=== PATIENT | female | born 1970 | race Caucasian/White ===

== ENCOUNTER → 2017-04-22 | Outpatient (CLI) | payer OTHER ==
[2017-04-22 10:26] LABS: Creatine Kinase MB 0.6 ng/mL (0.0-2.4); Troponin I <0.012 ng/mL (0.000-0.034)
== END | disposition home or self-care (01) ==
LOC: LABWHC1 09:08
PROVIDERS: ATTEND Physician Assistant
DX: R07.89 Other chest pain (principal)
CPT/HCPCS: 36415; 82550; 82553; 84484

== ENCOUNTER → 2021-09-21 | Outpatient (CLI) | payer OTHER ==
[2021-09-21 14:34] LABS: ALT 24 U/L (8-44); AST 21 U/L (13-35); Chol/HDL Ratio 3.04 Ratio; LDL Cholesterol,Calculated 87.5 mg/dL (0.0-131.0)
== END | disposition home or self-care (01) ==
LOC: LABWHC1 08:18
PROVIDERS: ATTEND Internal Medicine Cardiovascular Disease
DX: E78.2 Mixed hyperlipidemia (principal)
CPT/HCPCS: 36415; 80061; 84450; 84460

== ENCOUNTER 2022-07-12 10:33 | Day surgery (SDC) | payer OTHER ==
[2022-07-12 11:13] VITALS: TEMP 98.2
[2022-07-12] MEDS ORDERED: LACTATED RINGERS 1,000 ML IV ONE (11:23)
[2022-07-12 11:27] LABS: Glucose,Whole Blood 76 mg/dL (70-110)
[2022-07-12] MEDS ORDERED: LIDOCAINE 2% INJ 20 MG/ML (2 ML VIAL) ONE (12:46)
[2022-07-12] MEDS ORDERED: PROPOFOL 10 MG/ML 20 ML VIAL IV ONE (12:46)
--- NOTE | 2022-07-12 13:11 | P.PCN ---
Date of Procedure: 07/12/22 Procedure(s) Performed: BRIEF HISTORY: Patient is a 52-year-old pleasant white female scheduled for an elective colonoscopy as a part of screening for colon cancer. Her father was diagnosed with colon cancer at age 60. PROCEDURE PERFORMED: Colonoscopy. PREOPERATIVE DIAGNOSIS: Screening for colon cancer and family history of colon cancer. IV sedation per Anesthesia. PROCEDURE: After informed consent was obtained, the patient, was brought into the endoscopy unit. IV sedation was administered by Anesthesia under continuous monitoring. Digital rectal examination was normal. Initially the Olympus CF-160 flexible video colonoscope was then inserted in the rectum, gradually advanced into the cecum without any difficulty. Careful examination was performed as the scope was gradually being withdrawn. Ileocecal valve and the appendiceal orifice were visualized and appeared normal. Prep was excellent. Mucosa of the cecum, ascending colon, transverse colon, descending colon, sigmoid colon, and rectum appeared normal. Moderate sigmoid diverticulosis. Retroflexion was performed in the rectum and no lesions were seen. The patient tolerated the procedure well. IMPRESSION: Normal-appearing colon from rectum to cecum with no evidence of colitis or colorectal neoplasia . Moderate sigmoid diverticulosis. RECOMMENDATIONS: Findings of this examination were discussed with the patient as well as her family. She was advised to have a repeat screening colonoscopy every 5 years because of family history of colon cancer.
[2022-07-12 13:24] VITALS: RESP 20
[2022-07-12 13:43] VITALS: BP 142/89; PULSE 71
== END 2022-07-12 13:52 ==
LOC: ORWHC2ENDO 10:33
PROVIDERS: ATTEND Internal Medicine Gastroenterology
DX: Z12.11 Encounter for screening for malignant neoplasm of colon (principal); K57.30 Diverticulosis of large intestine without perforation or abscess without bleeding; I10 Essential (primary) hypertension; E78.5 Hyperlipidemia, unspecified; Z79.899 Other long term (current) drug therapy; Z80.0 Family history of malignant neoplasm of digestive organs
CPT/HCPCS: 81025; 45378; J2704; J2001

== ENCOUNTER → 2023-06-09 | Outpatient (CLI) | payer OTHER ==
--- NOTE | 2023-06-10 20:13 | MM ---
Reason for Exam: Screening (asymptomatic). Last screening mammogram was performed 12 month(s) ago. Patient History: Menarche at age 13. First Full-Term at age 26. Postmenopausal. Estrogen and Progesterone for 1 month. Risk Values: Mary 5 year model risk: 1.2%. NCI Lifetime model risk: 8.5%. Prior Study Comparison: 06/20/2014 Bilateral Screening Mammogram, [facility]. 06/06/2022 Bilateral MG 3D screening mammo w/cad, [facility]. Tissue Density: The breast tissue is heterogeneously dense. This may lower the sensitivity of mammography. Findings: Analyzed By CAD. There is no suspicious group of microcalcifications or new suspicious mass in either breast. Overall Assessment: Negative, BI-RAD 1 Management: Screening Mammogram of both breasts in 1 year. . Patient should continue monthly self-breast exams. A clinical breast exam by your physician is recommended on an annual basis. This exam should not preclude additional follow-up of suspicious palpable abnormalities. Note on Mary scores and lifetime risk: 1. A Mary score greater than 3% is considered moderate risk. If this is the case, consider specialist referral to assess eligibility for a risk reducing agent. 2. If overall lifetime risk for the development of breast cancer is 20% or higher, the patient may qualify for future screening with alternating mammogram and breast MRI. Electronically signed and approved by: Romero Lopes M.D. Radiologist
== END | disposition home or self-care (01) ==
LOC: RADMAMWWP 16:22
PROVIDERS: ATTEND Family Medicine
DX: Z12.31 Encounter for screening mammogram for malignant neoplasm of breast (principal); Z78.0 Asymptomatic menopausal state
CPT/HCPCS: 77063; 77067

== ENCOUNTER → 2024-09-01 | Outpatient (CLI) | payer BC ==
--- NOTE | 2024-09-01 08:01 | US ---
EXAMINATION TYPE: US liver DATE OF EXAM: 09/01/2024 COMPARISON: NONE CLINICAL INDICATION: Female, 54 years old with history of R79.89 ABN FINDINGS OF BLOOD CHEM; TECHNIQUE: Grayscale and color Doppler imaging of the right upper quadrant. FINDINGS: EXAM MEASUREMENTS: Liver Length: 13.8 cm Gallbladder Wall: 0.2 cm CBD: 0.7 cm, color Doppler imaging was utilized to isolate the common bile duct for measurement. Right Kidney: 11.3x4.6x5.0 cm TARP REPAIRER NOTES: slightly limited exam due to overlying bowel Pancreas: Head and tail obscured by overlying bowel gas Liver: Increased attenuation, decreased visualization of vessels suggestive of fatty infiltrate, sli ghtly difficult to penetrate, slightly obscured by overlying bowel Gallbladder: No stones seen Evidence for sonographic Inman's sign: No CBD: Borderline dilated Right Kidney: No hydronephrosis. Vague 1.8 cm hypoechoic area at the upper and mid pole. IMPRESSION: 1. Heterogeneous liver parenchyma suggesting fatty infiltration or other nonspecific hepatocellular d isease. Further evaluation recommended. 2. No gallstones. 3. Borderline dilated bile duct up to 7 mm may be chronic dilatation. Correlate with alkaline phospha tase and bilirubin levels to exclude early biliary obstruction. 4. Vague 1.8 cm hypoechoic area at the upper mid pole right kidney. Possible cyst with debris. Subtle solid mass not excluded at this time. Recommend 2 month follow-up ultrasound to reassess this area a nd exclude a suspicious lesion. [facility], , 09/01/2024 7:59 AM
== END | disposition home or self-care (01) ==
LOC: RADUSWWP 06:55
PROVIDERS: ATTEND Internal Medicine Gastroenterology
DX: K76.89 Other specified diseases of liver (principal); R79.89 Other specified abnormal findings of blood chemistry
CPT/HCPCS: 76705

== ENCOUNTER → 2024-10-13 | Outpatient (CLI) | payer BC ==
--- NOTE | 2024-10-13 16:33 | MM ---
Reason for Exam: Screening (asymptomatic). Last mammogram was performed 1 year(s) and 5 month(s) ago. Patient History: Menarche at age 13. First Full-Term at age 26. Postmenopausal. Estrogen and Progesterone for 1 month. Risk Values: Mary 5 year model risk: 1.2%. NCI Lifetime model risk: 8.3%. Prior Study Comparison: 06/20/2014 Bilateral Screening Mammogram, [facility]. 06/06/2022 Bilateral MG 3D screening mammo w/cad, [facility]. 06/09/2023 Bilateral MG 3D screening mammo w/cad, [facility]. Tissue Density: The breasts are heterogeneously dense, which may obscure small masses. Findings: Analyzed By CAD. There is no suspicious group of microcalcifications or new suspicious mass in either breast. Overall Assessment: Negative, BI-RAD 1 Management: Screening Mammogram of both breasts in 1 year. Patient should continue monthly self-breast exams. A clinical breast exam by your physician is recommended on an annual basis. This exam should not preclude additional follow-up of suspicious palpable abnormalities. Note on Mary scores and lifetime risk: 1. A Mary score greater than 3% is considered moderate risk. If this is the case, consider specialist referral to assess eligibility for a risk reducing agent. 2. If overall lifetime risk for the development of breast cancer is 20% or higher, the patient may qualify for future screening with alternating mammogram and breast MRI. [facility], , 10/13/2024 4:30 PM. Electronically signed and approved by: Romero Lopes M.D. Radiologist
== END | disposition home or self-care (01) ==
LOC: RADMAMWWP 15:57
PROVIDERS: ATTEND Family Medicine
DX: Z12.31 Encounter for screening mammogram for malignant neoplasm of breast (principal); R92.333 Mammographic heterogeneous density, bilateral breasts; Z78.0 Asymptomatic menopausal state
CPT/HCPCS: 77063; 77067

== ENCOUNTER → 2024-10-13 | Outpatient (CLI) | payer BC | END | disposition home or self-care (01) | LOC: RADMRIMAIN 05:54 | PROVIDERS: ATTEND Family Medicine | DX: Z53.9 Procedure and treatment not carried out, unspecified reason (principal) ==